=== PATIENT | female | born 1965 | race Caucasian/White ===

== ENCOUNTER 2021-01-23 10:57 | Outpatient (REF) | payer OTHER, SELFPAY | END 2021-01-23 10:58 | disposition home or self-care (01) | LOC: HO.MAMMO 10:57 | PROVIDERS: PCP Internal Medicine; Visit Provider Internal Medicine | DX: Z13.89 Encounter for screening for other disorder (principal) ==

== ENCOUNTER 2021-04-03 10:40 | Outpatient (REF) | payer OTHER, SELFPAY ==
--- NOTE | ~2021-04-03 | MM_ITS ---
EXAMINATION: MM SCREENING DIGITAL BREAST TOMOSYNTHESIS, BILATERAL CLINICAL INFORMATION: Screening. Asymptomatic. The lifetime risk of breast cancer based on the Tyrer-Cuzick Model is 5%. COMPARISON: Mammography: 04/02/2020, 03/28/2019, 02/15/2018 TECHNIQUE: Digital breast tomosynthesis is performed in both the craniocaudal and mediolateral oblique views along with computer-aided detection (CAD). Synthesized 2D images are generated from the tomosynthesis. FINDINGS: The breasts are almost entirely fatty (ACR BI-RADS breast composition Category a). There are no significant masses, abnormal calcifications, or other abnormalities. Background stromal markings are similar to prior study. The axilla and skin contours are unremarkable. No significant changes. MM/MM tomosynthesis screening BI IMPRESSION: No mammographic evidence of malignancy. ASSESSMENT: BI-RADS 1: Negative RECOMMENDATION: Routine annual mammography screening. This patient's information was entered into a reminder system with a target due date for their next mammogram.
== END 2021-04-03 10:41 | disposition home or self-care (01) ==
LOC: HO.MAMMO 10:40
PROVIDERS: Visit Provider Internal Medicine
DX: Z12.31 Encounter for screening mammogram for malignant neoplasm of breast (principal)
CPT/HCPCS: 77063; 77067

== ENCOUNTER 2022-04-04 11:21 | Outpatient (REF) | payer OTHER, SELFPAY ==
--- NOTE | ~2022-04-04 | MM_ITS ---
EXAMINATION: MM SCREENING DIGITAL BREAST TOMOSYNTHESIS, BILATERAL CLINICAL INFORMATION: Screening. Asymptomatic. The lifetime risk of breast cancer based on the Tyrer-Cuzick Model is 5%. COMPARISON: Mammography: 04/03/2021, 04/02/2020, 03/28/2019 TECHNIQUE: Digital breast tomosynthesis is performed in both the craniocaudal and mediolateral oblique views along with computer-aided detection (CAD). Synthesized 2D images are generated from the tomosynthesis. FINDINGS: The breasts are almost entirely fatty (ACR BI-RADS breast composition Category a). There are no significant masses, abnormal calcifications, or other abnormalities. Background stromal markings are similar to prior studies. No developing density or architectural abnormality. The axillary and skin contours are unremarkable. MM/MM tomosynthesis screening BI IMPRESSION: No mammographic evidence of malignancy. ASSESSMENT: BI-RADS 1: Negative RECOMMENDATION: Routine annual mammography screening. This patient's information was entered into a reminder system with a target due date for their next mammogram.
== END 2022-04-04 11:22 | disposition home or self-care (01) ==
LOC: HO.MAMMO 11:21
PROVIDERS: PCP Internal Medicine; Visit Provider Internal Medicine
DX: Z12.31 Encounter for screening mammogram for malignant neoplasm of breast (principal)
CPT/HCPCS: 77063; 77067

== ENCOUNTER 2023-02-21 19:34 | Emergency (ER) | payer OTHER, SELFPAY ==
[2023-02-21 19:41] VITALS: BP 136/85; PULSE 61; RESP 20; TEMP 36.8; O2SAT 98; BMI 28.3
--- NOTE | 2023-02-21 19:49 | ED.GENADULT ---
HPI - General Adult General Chief complaint: Wound/Laceration Stated complaint: Dog bite right hand/swollen Time Seen by Provider: 02/21/23 19:44 Source: patient, RN notes reviewed and old records reviewed Mode of arrival: ambulatory Limitations: no limitations History of Present Illness HPI narrative: 57-year-old female presents for evaluation of a dog bite to her right hand. Patient reports last night, she was bit on the right hand by her own dog. She reports that she woke this morning with some swelling and redness to the right thumb with 8/10 pain. Denies any fevers or chills The dog is up to date on all of its vaccines including rabies Related Data Previous Rx's Medication Instructions Recorded doxycycline hyclate 100 mg tablet 100 mg PO BID #14 tabs 02/21/23 metronidazole 500 mg tablet 500 mg PO TID #21 tabs 02/21/23 Allergies Allergy/AdvReac Type Severity Reaction Status Date / Time Penicillins [PENICILLINS] Allergy Unknown BODY WEAK Verified 02/21/23 19:46 Review of Systems Musculoskeletal: Musculoskeletal: Reports other (Right hand pain) Integumentary/Breasts: Skin/Breast: Reports erythema and Reports wounds Physical Exam ED Vital Signs: Vital Signs - 24 hr 02/21/23 19:41 Temperature 98.2 F Pulse Rate 61 Respiratory Rate 20 Blood Pressure 136/85 Pulse Oximetry 98 Oxygen Delivery Method Room Air BMI result Body Mass Index 28.3 Const General: healthy appearing, comfortable, no acute distress, alert and awake Nutritional Appearance: well nourished Orientation/consciousness: patient oriented x3 Neck Neck: Yes full ROM Skin Other: Patient is a very tiny puncture wound to the webspace between the right 1st and 2nd fingers. There is mild edema and erythema extending 4 cm proximally. No streaking erythema up the arm. Patient has full range of motion to the right wrist and all fingers of the right hand including the thumb General skin exam: elasticity normal Neuro General: patient oriented x3 Cranial nerves: Yes Bilaterally intact EOM present Cognition (Neuro): normal cognition Extrem Other: Moving all extremities well without any obvious deformities Medications Administered Discontinued Medications Generic Name Dose Route Start Last Admin Trade Name Freq PRN Reason Stop Dose Admin Diphtheria/Tetanus/Acell Pertussis 0.5 ml 02/21/23 19:48 02/21/23 19:51 Diphth,Pertus(Acell),Tet Adult 0.5 Ml Syringe IM 02/21/23 19:49 0.5 ml .ONCE ONE Administration Medical Decision Making Medical Decision Making MDM Narrative: Patient has a dog bite to the right hand, a small area of surrounding cellulitis. No evidence of abscess or sepsis. Will treat the patient with doxycycline and Flagyl as the patient IV allergy to penicillins. Patient was given return precautions. Tetanus was updated today Differential Diagnosis Dog bite Cellulitis Abscess Rabies exposure Discharge Plan Discharge Clinical Impression: Dog bite of right hand Patient Disposition: Home, Self-Care Instructions: Animal Bite (ED) Additional Instructions: Take doxycycline twice daily for next 7 days. Take metronidazole 3 times daily for the next 7 days Do not drink alcohol while you are taking metronidazole Return for new or worsening symptoms, especially if you develop a fever or if the redness is spreading up towards your arm Prescriptions: New doxycycline hyclate 100 mg tablet 100 mg PO BID Qty: 14 0RF metronidazole 500 mg tablet 500 mg PO TID Qty: 21 0RF
[2023-02-21] MEDS: Diphth,Pertus(ACell),Tet Adult 0.5 ML SYRINGE IM (19:51)
== END 2023-02-21 19:57 | disposition home or self-care (01) ==
LOC: HO.ED 19:56
PROVIDERS: Emergency Provider Internal Medicine
DX: S61.451A Open bite of right hand, initial encounter (principal); W54.0XXA Bitten by dog, initial encounter; Y93.9 Activity, unspecified; Y92.039 Unspecified place in apartment as the place of occurrence of the external cause; Y99.9 Unspecified external cause status
CPT/HCPCS: 90471; 90715; 99282; 99284

== ENCOUNTER 2023-04-17 12:06 | Outpatient (REF) | payer OTHER, SELFPAY ==
--- NOTE | ~2023-04-17 | MM_ITS ---
EXAMINATION: MM SCREENING DIGITAL BREAST TOMOSYNTHESIS, BILATERAL CLINICAL INFORMATION: Screening. Asymptomatic. The lifetime risk of breast cancer based on the Tyrer-Cuzick Model is 4.6%. COMPARISON: Mammography: This study is compared with prior exams dating back to 2018. TECHNIQUE: Digital breast tomosynthesis is performed in both the craniocaudal and mediolateral oblique views along with computer-aided detection (CAD). Synthesized 2D images are generated from the tomosynthesis. FINDINGS: There are scattered areas of fibroglandular density (ACR BI-RADS breast composition Category b). There are no significant masses, abnormal calcifications, or other abnormalities. MM/MM tomosynthesis screening BI IMPRESSION: No mammographic evidence of malignancy. ASSESSMENT: BI-RADS BI-RADS 1 - Negative RECOMMENDATION: Routine annual mammography screening. 1 year F/U This examination should not preclude the clinical evaluation of a suspicious palpable abnormality. This patient's information was entered into a reminder system with a target due date for their next mammogram.
== END 2023-04-17 12:07 | disposition home or self-care (01) ==
LOC: HO.MAMMO 12:06
PROVIDERS: Visit Provider Internal Medicine
DX: Z12.31 Encounter for screening mammogram for malignant neoplasm of breast (principal)
CPT/HCPCS: 77063; 77067

== ENCOUNTER → 2023-04-17 12:30 | Outpatient (BNV) | payer OTHER, SELFPAY | PROVIDERS: Visit Provider Radiology Diagnostic Radiology | DX: Z12.31 Encounter for screening mammogram for malignant neoplasm of breast (principal) | CPT/HCPCS: 77063; 77067 ==

== ENCOUNTER 2024-04-22 10:57 | Outpatient (REF) | payer OTHER, SELFPAY | END 2024-04-22 10:58 | disposition home or self-care (01) | LOC: HO.MAMMO 10:57 | PROVIDERS: PCP Internal Medicine; Visit Provider Internal Medicine | DX: Z12.31 Encounter for screening mammogram for malignant neoplasm of breast (principal) | CPT/HCPCS: 77063; 77067 ==

== ENCOUNTER → 2024-04-22 12:30 | Outpatient (BNV) | payer OTHER, SELFPAY | PROVIDERS: PCP Internal Medicine; Visit Provider Radiology Diagnostic Radiology | DX: Z12.31 Encounter for screening mammogram for malignant neoplasm of breast (principal) | CPT/HCPCS: 77063; 77067 ==

== ENCOUNTER 2025-04-28 10:46 | Outpatient (REF) | payer OTHER, SELFPAY ==
--- OUTSIDE RECORDS SUMMARY | 2025-04-28 11:17 | XMS_ITS | Data Portability ---
Author Organization [facility], [address] Address [address] [place] [address] Care Team Providers Care Manager Heavy Equipment Name Role Phone [facility] Primary Care Provi axel Assessment No assessment recorded. Plan of Treatment Reminders Order Date Submit Date Provider Last Modified By Organization Details Last Modified Time Details Appointments None recorded. Lab SARS CoV 2 (COVID-19) Ag, QL, IA, upper respiratory specimen 2022 023 [email or web address] [facility] [address] [place], [address], 16:32:52 Referral None recorded. Procedures None recorded. Surgeries None recorded. Imaging None recorded. Medication Orders Allergy Relief (fluticason e) 50 mcg/actuati on nasal spray,suspe nsion 2022 023 JENS [id number], [address] [place], [address], 16:32:51 loratadine 10 mg tablet 2022 023 [email or web address] [id number], [address] [place], [address], 12:54:29 Patient TargetsNo targets recorded. Patient Instructions Encounter Date Encounter Id Patient Instructions Last Modified By Organization Details Last Modified Time 07/04/2023 [id number] coronavirus (covid-19): care instructions [email or web address] Not available 07/04/2023 16:32:49 Sinusitis is an infection of the lining of the sinus cavities in your head. Sinusitis often follows a cold. It causes pain and pressure in your head and face. In most cases, sinusitis gets better on its own in 1 to 2 weeks. But some mild symptoms may last for several weeks. Sometimes antibiotics are needed. if you are having problems. It's also a good idea to know your test results and keep a list of the medicines you take. How can you care for yourself at home? Take an dkxf-sax-qcjeezd pain medicine. Avoid Ibuprofen, Aleve and Aspirin if . If the doctor prescribed antibiotics, take them as directed. Do not stop taking them just because you feel better. You need to take the full course of antibiotics. Be careful when taking ukwm-xrf-aepauvp cold or influenza (flu) medicines and Tylenol at the same time. Many of these medicines have acetaminophen, which is Tylenol. Read the labels to make sure that you are not taking more than the recommended dose. Too much acetaminophen (Tylenol) can be harmful. Breathe warm, moist air from a steamy shower, a hot bath, or a sink filled with hot water. Avoid cold, dry air. Using a humidifier in your home may help. Follow the directions for cleaning the machine. Use saline (saltwater) nasal washes. This can help keep your nasal passages open and wash out mucus and bacteria. You can buy saline nose drops at a grocery store or drugstore. Or you can make your own at home by adding 1 teaspoon (5 millilitres) of salt and 1 teaspoon (5 millilitres) of baking soda to 2 cups (500 mL) of distilled water. If you make your own, fill a bulb syringe with the solution, insert the tip into your nostril, and squeeze gently. Blow your nose. Put a hot, wet towel or a warm gel pack on your face 3 or 4 times a day for 5 to 10 minutes each time. Try a decongestant nasal spray like oxymetazoline (Drixoral). Do not use it for more than 3 days in a row. Using it for more than 3 days can make your congestion worse. [email or web address] Not available 07/04/2023 16:32:31 Reason for Referral None Reported. Results Created Date Observation Date Name Description Value Unit Range Abnormal Flag Note LastModifiedBy Organization Detail LastModifiedTime 07/04/20 23 07/04/2023 SARS CoV 2 (COVI D-19) Ag, QL, IA, upper respi rator y speci men Unknown Analyte negati ve Not Available [id number] [place], [address], 07/04/2023 15:49:17 Result Notes None recorded. 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 Procedures Surgical History Date Name Laterality Status Provider Name and Address Organization Details Recorded Time hysterectomy completed STACY RIANA PA - [facility] 07/04/2023 15:49:29 Imaging Results None recorded. Procedure Notes None recorded. Medical Equipment None Reported. Allergies Allergen ID Allergen Name Allergen Category Reaction Reaction Severity Criticality Documentation Date Start Date Code Code System Note Provider Name and Address Organization Details Recorded Time 076679 Product containin g penicilli n (product) medicatio n Not available Not available Not available 07/04/2023 15559 8001 SNOMED STACY MORENO-RIVE RA null, PA - [facility] 3 15:46:18 858481 Sudafed medicatio n Not available Not available Not available 07/04/2023 57565 2 RxNorm [place] MORENO-RIVE RA null, PA - [facility] 3 15:46:39 Medications Name Sig Start Date Stop Date Status Note LastModified by Organization Details LastModified Time clonidine HCl 0.1 mg tablet TAKE 1/2 TABLET BY MOUTH TWICE A DAY NEEDED FOR ANXIETY active Not Available Not Available No t Available ketotifen 0.025 % (0.035 %) eye drops INSTILL 1 DROP INTO BOTH EYES TWICE A DAY active Not Available Not Available No t Available metronidazo le 500 mg tablet TAKE 1 TAB BY MOUTH 3 TIMES A DAY 07/04 completed Not Available Not Available Not Available oxycodone-a cetaminophe n 5 mg-325 mg tablet TAKE 1 TABLET BY MOUTH TWICE A DAY NEEDED FOR PAIN FOR UP TO 28 DAYS active Not Available Not Available No t Available methocarbam ol 750 mg tablet TAKE 1 TABLET BY MOUTH THREE TIMES A DAY active Not Available Not Available No t Available fluticasone propionate 50 mcg/actuati on nasal spray,suspe nsion INSTILL 1 SPRAY INTO THE NOSTRIL ONCE DAILY DIRECTED active Not Available Not Available No t Available doxycycline hyclate 100 mg tablet TAKE 1 TAB BY MOUTH TWICE A DAY 07/04 completed Not Available Not Available Not Available loratadine 10 mg tablet TAKE 1 TABLET BY MOUTH EVERY DAY active Not Available Not Available No t Available levothyroxi ne 112 mcg tablet TAKE 1 TABLET BY MOUTH EVERY DAY active Not Available Not Available No t Available olmesartan 20 mg tablet TAKE 1/2 TABLETS BY MOUTH DAILY. TO REPLACE LOSARTAN active Not Available Not Available No t Available escitalopra m 20 mg tablet TAKE 1 TABLET BY MOUTH EVERY DAY IN THE EVENING active Not Available Not Available No t Available Vitals Date Recorded Body height Body mass index (BMI) Body weight Respiratory rate Provider Name and Address Organization Details Last Updated DateTime 07/04/2023 162.56 cm 29.2 kg/m2 62492.7 g 18 /min STACY Mars PA - [facility] 07/04/2023 15:46:05 Social History Question Answer Notes LastModified by [employer] Details LastModified Time Tobacco Smoking Status Never Smoker STACY bah PA - [facility] 07/04/2023 15:48:41 Have You Had A Flu Shot This Season? No Information not available 07/04/2023 If No, Would You Like A Flu Shot Today? No Information not available 07/04/2023 Have You Recently Traveled Abroad? No Information not available 07/04/2023 Sex: Unknown Functional Status Question Answer Note LastModified by Organizat ion Details LastModified Time Do you use any illicit or recreational drugs? No Information not available 07/04/2023 Do you or have you ever used any other forms of tobacco or nicotine? No Information not available 07/04/2023 What is your level of alcohol consumption? None Information not available 07/04/2023 Mental Status None recorded. Family History Relationship Description Onset Age of this Age Resolved Age Notes LastModified by Organization Details LastModified Time Unspecified Relation Malignant neoplastic disease Not available 15:48:26 Medical History No medical history recorded. Gynecological History Statement/Question Response LMP N/A Obstetrics History GPAL:G 0 P 0 0 0 0 Immunizations Vaccine Type Date Status Note Provider Nam e and Address Organization Details Recorded Time COVID-19, mRNA, LNP-S, PF, 30 mcg/0.3 mL dose 1 completed STACY MORENO-VARGHESE null, PA - [facility] 07/04/2023 15:46:09 COVID-19, mRNA, LNP-S, PF, 30 mcg/0.3 mL dose 1 completed STACY MORENO-VARGHESE null, PA - [facility] 07/04/2023 15:46:09 COVID-19, mRNA, LNP-S, bivalent, PF, 30 mcg/0.3 mL dose 2 completed STACY MORENO-VARGHESE null, PA - [facility] 07/04/2023 15:46:09 Tdap 8 completed STACY MORENO-VARGHESE null, PA - [facility] 07/04/2023 15:46:09 Tdap 3 completed STACY MORENO-VARGHESE null, PA - [facility] 07/04/2023 15:46:09 Influenza, split virus, trivalent, preservative 1 completed STACY MORENO-VARGHESE null, PA - [facility] 07/04/2023 15:46:09 Td (adult), 2 Lf tetanus toxoid, preservative free, adsorbed 2 completed STACY MORENO-VARGHESE null, PA - [facility] 07/04/2023 15:46:09 Hep B, adult 2 completed STACY MORENO-VARGHESE null, PA - [facility] 07/04/2023 15:46:09 Hep B, adult 1 completed STACY MORENO-VARGHESE null, PA - [facility] 07/04/2023 15:46:09 Hep B, adult 1 completed STACY MORENO-VARGHESE null, PA - [facility] 07/04/2023 15:46:09 Hep B, adult 0 completed STACY MORENO-VARGHESE null, PA - [facility] 07/04/2023 15:46:09 Hep B, adult 9 completed STACY MORENO-VARGHESE null, PA - [facility] 07/04/2023 15:46:10 Hep B, adult 9 completed STACY MORENO-VARGHESE null, PA - [facility] 07/04/2023 15:46:10 Past Encounters Encounter ID Performer Location Encounter Start Date Encounter Closed Date Diagnosis/Indication Diagnosis SNOMED-CT Code Diagnosis ICD10 Code Diagnosis Note [id number] [address] [place] [address] 03/11/2018 13:25:36 03/11/2018 14:50:04 [id number] [place] [address] [address] [place] [address] 07/04/2023 15:30:31 07/04/2023 16:36:46 Exposure to SARS-CoV-2 209843681 Z20.822 Acute sinusitis 27016997 J01.90 Health Concerns Section Related Observation LastModified by Organization Detai ls LastModified Time None Recorded Concern Status LastModified by Organization Details LastModified Time None Recorded Advance Directives Directive None Recorded Payers Insurance Date Sequence Insurance Name Policy Number Policy Slater Covered Member ID Slater Member ID Guarantor Name 07/04/2023 1 [facility] (MEDICAID HMO) KENNEY Vazquez [id number] Celine Vazquez Notes Date Note Type Note Provider Name and Address Organization Details Recorded Time 07/04/2023 text/html Sinus Complaints UCReported bypatient.Location: sinus pain;facial pain;sinus pressure Associated Symptoms:no fever; no nausea or vomiting; no sore throat; no ear fullness; no nasal itching; no eye itching; no dizziness;difficult y breathing;Post nasal drip;nasal passage blockage;cough Onset/Timing:worse in am; worse in pm Quality:minimal discomfort;worsenin g; clear Duration:frequent Severity:moderate Context:no recent upper respiratory infection; no recent sick contacts; not worse with seasonal allergen exposure;worse with environmental exposure Risk Factors:no current smoking or tobacco use; no history of nasal trauma Alleviating factors:oral steroids Aggravating factors:worse during an upper respiratory infection (a cold); worse with excess fatigue Prior Treatmentoral decongestant Gera Steen NP [address] [place], [address], PA - [facility] 07/04/2023 16:35:27 OBGyn Episode No OBEpisode recorded.
--- OUTSIDE RECORDS SUMMARY | 2025-04-28 11:17 | XMS_ITS | Encounter Summary ---
Author Organization [facility] Address [address] [place] [address] Care Team Providers Care Mixer Runner Name Role Phone Dung Herrera MD Primary Care Provider [phone] Reason for Visit * Reason Onset Date Comments provide call back 04/28/2025 Encounter Details Date Type Department Care Team (Late st Contact Info) Description 04/28/2025 Telephone Vascular Surgery - [place] [address] [place] [phone] Kirby Rachel MD [address] [place] [address] provide call back Social History Tobacco Use Types Packs/Day Years Used Date Smoking Tobacco: Former Cigarettes Q uit: 10/12/2012 Smokeless Tobacco: Never Alcohol Use Standard Drinks/Week Comments No 0 (1 standard drink = 0.6 oz pur e alcohol) Comments No Sex and Gender Information Value Date Recorded Sex Assigned at Not on file Legal Sex Female 5:05 AM EST Gender Identity Not on file Sexual Orientation Not on file documented as of this encounter Progress Notes * Pramod Renee MA - 04/28/2025 10:51 AM EDT Forwarded to [facility] to see how long out this would be booked, procedure was ordered in December by Nicole * Argenis Flores - 04/28/2025 10:34 AM EDT Patient called she wants to follow up with procedure. Please call patient back. documented in this encounter Plan of Treatment Upcoming Encounters Date Type Department Care Team (Late st Contact Info) Description 05/12/2025 10:35 AM EDT Office Visit Pulmonolgy - [place] [address] [place] [phone] Luci Alcantara NP [address] [place] [address] 06/15/2025 10:00 AM EDT Appointment Radiology Department - [address] [phone] 06/21/2025 9:45 AM EDT Office Visit Endocrinology - [address] [phone] Cheryl Mccall PA [address] [place] [address] 08/03/2025 11:00 AM EDT Office Visit Internal Medicine - [facility] [address] [place] [address] Dung Herrera MD [address] [place] [address] documented as of this encounter Visit Diagnoses Not on filedocumented in this encounter Care Teams Mixer Runner Relationship Specialty Start Date End Date Dung Herrera MD [address] [place] [address] PCP - General Internal Medicine 02/18/22 documented as of this encounter
== END 2025-04-28 10:47 | disposition home or self-care (01) ==
LOC: HO.MAMMO 10:46
PROVIDERS: PCP Internal Medicine; Visit Provider Internal Medicine
DX: Z12.31 Encounter for screening mammogram for malignant neoplasm of breast (principal)
CPT/HCPCS: 77063; 77067

== ENCOUNTER → 2025-04-28 11:00 | Outpatient (BNV) | payer OTHER, SELFPAY | PROVIDERS: PCP Internal Medicine; Visit Provider Internal Medicine | DX: Z12.31 Encounter for screening mammogram for malignant neoplasm of breast (principal) | CPT/HCPCS: 77063; 77067 ==

== ENCOUNTER 2025-06-26 21:51 | Emergency (ER) | payer OTHER, SELFPAY ==
--- OUTSIDE RECORDS SUMMARY | 2025-06-22 15:09 | XMS_ITS | Encounter Summary ---
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 Procedures US Head Neck Soft Tissue Cheryl Mccall PA [address] [place] [address] Phone: tel: fax: [facility] Referral ID Status Reason Start Date Expiration Date V isits Requested Visits Authorized [id number] Pending Review 12/16/2024 12/16/2025 1 1 Reason for Visit * Imaging (Routine) - Pending Review Specialty Diagnoses / Procedures Referred By Marley nowak Referred To Contact Radiology Diagnoses 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 Procedures US Head Neck Soft Tissue Cheryl Mccall PA [address] [place] [address] Phone: tel: fax: [facility] Referral ID Status Reason Start Date Expiration Date V isits Requested Visits Authorized [id number] Pending Review 12/16/2024 12/16/2025 1 1 Encounter Details Date Type Department Care Team (Latest Contact Info) Description 06/22/2025 3:09 PM EDT - 06/22/2025 11:59 PM EDT Hospital Encounter Radiology Department - [address] [phone] 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 cloNIDine (CATAPRES) 0.1 mg tablet Take 0.5 tablets (0.05 mg total) by mouth. Take 0.05 mg by mouth daily as needed for Anxiety 06/25/2022 escitalopram (LEXAPRO) 10 mg tablet Take 1.5 tablets (15 mg total) by mouth 1 (one) time each day. fluticasone propionate (FLONASE) 50 mcg/actuation nasal spray Administer 2 sprays into each nostril 1 (one) time each day. 48 g 1 03/13/2025 ketotifen fumarate (ZADITOR) 0.035 % ophthalmic solution Administer 1 drop into affected eye(s) 1 (one) time each day. 5 mL 1 05/26/2025 L. rhamnosus GG/inulin ([facility] ORAL) Take by mouth. levothyroxine (SYNTHROID, LEVOTHROID) 100 mcg tablet TAKE 1 TABLET BY MOUTH EVERY DAY 90 tablet 3 06/19/2025 loratadine (CLARITIN) 10 mg tablet Take 1 tablet (10 mg total) by mouth 1 (one) time each day. 03/18/2024 MAGNESIUM ORAL Take 100 mg by mouth 1 (one) time each day. meclizine (ANTIVERT) 25 mg tablet Take 1 tablet (25 mg total) by mouth. Take 1 Tab by mouth 3 times daily as needed (dizziness) 01/04/2018 medical supply, miscellaneous (MISCELLANEOUS MEDICAL SUPPLY MISC) CPAP Historical (HISTORICAL CPAP) Inhale 6-16 cm into the lungs at bedtime. 08/02/2021 methocarbamoL (ROBAXIN) 750 mg tablet TAKE 1 TABLET BY MOUTH THREE TIMES A DAY 90 tablet 2 06/19/2025 olmesartan (BENICAR) 20 mg tablet TAKE 1/2 TABLET BY MOUTH DAILY 45 tablet 1 12/27/2024 polyvinyl alcohol (ARTIFICIAL TEARS) 1.4 % ophthalmic solution 1.4 Drops. 2 drop (R) eye 3-4 x daily 08/17/2014 UNABLE TO FIND Elastic Bandages & Supports (B & B SACROILIAC BELT) Misc 1 Each by Does not apply route daily. 04/07/2017 UNABLE TO FIND Misc. Devices (CONTOUR BACK CUSHION) Misc 1 Each by Does not apply route daily. 06/11/2015 vitamin E acid succinate (vitamin E succinate) 268 mg (400 unit) tablet Take 1 tablet by mouth 1 (one) time each day. oxyCODONE-acetamino phen (PERCOCET) 5-325 mg per tabletIndications:A rthralgia, unspecified joint Take 1 tablet by mouth 2 (two) times a day for 28 days. Max Daily Amount: 2 tablets 56 tablet 05/26/2025 documented as of this encounter Discharge Disposition Disposition Code Departure Means Destination Home or Self Care documented in this encounter Plan of Treatment Upcoming Encounters Date Type Department Care Team (Late st Contact Info) Description 08/03/2025 11:00 AM EDT Office Visit Internal Medicine - [facility] [address] [place] [address] Dung Herrera MD [address] [place] [address] 08/25/2025 11:25 AM EST Office Visit Pulmonolgy [facility] [address] [place] [phone] Luci Alcantara NP [address] [place] [address] 08/31/2025 10:00 AM EST Procedure visit Vascular Surgery - [place] [address] [place] [phone] Kirby Rachel MD [address] [place] [address] 09/04/2025 10:00 AM EST Ancillary Procedure [facility] [address] [facility] [address] [place] [address] 09/18/2025 2:00 PM EST Office Visit Vascular Surgery - [place] [address] [facility] [address] [place] [phone] Nicole Larios PA [address] [place] [phone] 06/21/2026 11:00 AM EDT Office Visit Endocrinology [address] [address] Cheryl Mccall PA [address] [place] [address] documented as of this encounter Procedures Procedure Name Priority Date/Time Associated Diagnosis Comments US HEAD NECK SOFT TISSUE Routine 06/22/2025 3:24 PM EDT 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 Small thyroid gland. 2. No focal nodules -------- FINAL REPORT -------- Dictated By: Eh Joe Dictated Date: 06/22/2025 17:47 ET Assigned Physician: Eh Joe Reviewed and Electronically Signed By: Eh Joe Signed Date: 06/22/2025 17:49 ET Workstation ID: [id number] Transcribed By: Self Edit Transcribed Date: 06/22/2025 17:47 ET Narrative 06/22/2025 5:49 PM EDT Exam: Thyroid ultrasound. HISTORY: hypothyroidism COMPARISON: None Technique: Grayscale and Doppler images of the thyroid gland were obtained. FINDINGS: The thyroid gland is small in size. The right lobe measures 2.2 x 0.5 x 0.9 cm. The left lobe measures 2.6 x 0.7 x 0.7 cm. The thyroid isthmus is small in size and measures 0.2 cm. The thyroid parenchyma is heterogenous. No focal nodules Procedure Note Eh Joe MD - 06/22/2025 Exam: Thyroid ultrasound. HISTORY: hypothyroidism COMPARISON: None Technique: Grayscale and Doppler images of the thyroid gland wereobtained. FINDINGS: The thyroid gland is small in size. The right lobe measures 2.2 x 0.5 x0.9 cm. The left lobe measures 2.6 x 0.7 x 0.7 cm. The thyroid isthmus issmall in size and measures 0.2 cm. The thyroid parenchyma is heterogenous.No focal nodules IMPRESSION: 1. Small thyroid gland. 2. 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
--- NOTE | ~2025-06-26 | XR_ITS ---
CLINICAL HISTORY: Dog Bite; Swelling Infected 3 view right hand Comparison: None provided Findings: No fractures or dislocations. [id number] interphalangeal degenerative changes. No erosions. No radiopaque foreign body. IMPRESSION: No soft tissue gas, foreign body, or fracture. This document has been electronically signed by: Asher Puentes MD on 06/27/2025 04:49:43
[2025-06-26 22:27] VITALS: BP 145/76; PULSE 75; RESP 20; TEMP 36.5; O2SAT 99; BMI 31.9
[2025-06-26 22:40] LABS: MANUAL DIFF FLAG NO
[2025-06-26 22:41] LABS: Hematocrit 36.6 % (37.0-47.0); Hemoglobin 12.2 g/dl (12.0-16.0); Imm Gran Abs Auto 0.01 X10*3/uL (0.00-0.03); Imm Gran Pct Auto 0.2 % (0.0-0.4); Lymphocytes Absolute Auto 1.8 X10*3/uL (1.2-4.9); Mean Corpuscular HGB Conc 33.3 g/dl (31.0-35.0); Mean Corpuscular Hemoglobin 29.5 pg (27.0-33.0); Mean Corpuscular Volume 88.4 fL (80.0-98.0); NRBC Abs Auto 0.000 X10*3/uL (0.0-0.012); NRBC Pct Auto 0.0 /100WBC (0.0-0.2); Platelet Count 198 X10*3/uL (160-400); Red Blood Count 4.14 X10*6/uL (4.20-5.50); White Blood Count 6.3 X10*3/uL (4.8-10.8)
[2025-06-26 22:54] LABS: Alanine Aminotransferase 20 U/L (0-31); Albumin Level 4.3 g/dL (3.5-5.0); Alkaline Phosphatase 94 U/L (39-117); Anion Gap 9 (12-20); Aspartate Amino Transferase 23 U/L (5-31); Blood Urea Nitrogen 10 mg/dL (9-16); Calcium 9.4 mg/dL (8.4-10.2); Carbon Dioxide 29 mmol/L (22-29); Chloride 106 mmol/L (96-108); Creatinine Clr Calc Pharmacy 92.1; Estimated Glomerular Filt Rate > 60; Potassium 4.3 mmol/L (3.3-5.1); Sodium 140 mmol/L (135-145); Total Protein 7.1 g/dL (6.5-8.0)
--- OUTSIDE RECORDS SUMMARY | 2025-06-27 00:36 | XMS_ITS ---
Author Name [facility] Organization Unknown Care Team Organization Name Specialty Phone Email Start Date End Da te [facility] Dung Herrera Primary Care 08/19/20222023
--- OUTSIDE RECORDS SUMMARY | 2025-06-27 00:36 | XMS_ITS | Encounter Summary ---
Author Organization [facility] Address [address] [place] [address] Care Team Providers Care Interior Design Director Name Role Phone Dung Herrera MD Primary Care Provider [phone] Reason for Visit * Reason Onset Date Comments Last Office Note Request 06/19/2025 Encounter Details Date Type Department Care Team (Late st Contact Info) Description 06/19/2025 Telephone [facility] [address] [place] [address] Luci Alcantara, NAYELY [address] [place] [phone] Social History Tobacco Use Types Packs/Day Years [...] as of this encounter Progress Notes * Kellie German - 06/19/2025 1:14 PM EDT Dionte called requesting last office notes for patient. Notes were faxed to documented in this encounter Plan of Treatment Upcoming Encounters Date Type Department Care Team (Late st Contact Info) Description 08/03/2025 11:00 AM EDT Office Visit Internal Medicine - [facility] [address] [place] [address] Dung Herrera MD [address] [place] [address] 08/25/2025 11:25 AM EST Office Visit Pulmonolgy - [place] [address] [place] [phone] Luci Alcantara NP [address] [place] [phone] 08/31/2025 10:00 AM EST Procedure visit Vascular Surgery - [place] [address] [facility] [address] [place] [address] Kirby Rachel MD [address] [place] [phone] 09/04/2025 10:00 AM EST Ancillary Procedure [facility] - [facility] [address] [facility] [address] [place] [address] 09/18/2025 2:00 PM EST Office Visit Vascular Surgery - [place] [address] [facility] [address] [place] [address] Nicole Larios PA [address] [place] [phone] 06/21/2026 11:00 AM EDT Office Visit Endocrinology [address] [phone] Cheryl Mccall PA [address] [place] [address] documented as of this encounter Visit Diagnoses Not on filedocumented in this encounter Care Teams Interior Design Director Relationship Specialty Start Date End Date Dung Herrera MD [address] [place] [address] PCP - General Internal Medicine 02/18/22 documented as of this encounter
--- OUTSIDE RECORDS SUMMARY | 2025-06-27 00:36 | XMS_ITS | Clinical Summary ---
Author Organization [address] [place] [address] [place] [phone] Phone Care Team Providers Care Automated Logistics Specialist Name Role Phone Dung Herrera MD Primary Care Provider [phone] Allergies Active Allergy Reactions Criticality Noted Date Comments Lisinopril 08/02/2021 Penicillins 04/10/2014 Dizziness and weakness Pseudoephedrine Hcl Other 05/02/2016 Chest pressure Medications loratadine (CLARITIN) 10 mg tablet Take 1 tablet (10 mg total) by mouth 1 (one) time each day. 03/18/20 24 Active cloNIDine (CATAPRES) 0.1 mg tablet Take 0.5 tablets (0.05 mg total) by mouth. Take 0.05 mg by mouth daily as needed for Anxiety 06/25/20 22 Active escitalopram (LEXAPRO) 10 mg tablet Take 1.5 tablets (15 mg total) by mouth 1 (one) time each day. Active meclizine (ANTIVERT) 25 mg tablet Take 1 tablet (25 mg total) by mouth. Take 1 Tab by mouth 3 times daily as needed (dizziness) 01/05/20 18 Active cholecalciferol (VITAMIN D-3) 25 mcg (1,000 unit) capsule Take by mouth 1 (one) time each day. Active L. rhamnosus GG/inulin ([facility] D[facility] ORAL) Take by mouth. Active medical supply, miscellaneous (MISCELLANEOUS MEDICAL SUPPLY MISC) CPAP Historical (HISTORICAL CPAP) Inhale 6-16 cm into the lungs at bedtime. 08/02/20 21 Active UNABLE TO FIND Elastic Bandages & Supports (B & B SACROILIAC BELT) Misc 1 Each by Does not apply route daily. 04/07/20 17 Active UNABLE TO FIND Misc. Devices (CONTOUR BACK CUSHION) Misc 1 Each by Does not apply route daily. 06/11/20 15 Active polyvinyl alcohol (ARTIFICIAL TEARS) 1.4 % ophthalmic solution 1.4 Drops. 2 drop (R) eye 3-4 x daily 08/17/20 14 Active vitamin E acid succinate (vitamin E succinate) 268 mg (400 unit) tablet Take 1 tablet by mouth 1 (one) time each day. Active olmesartan (BENICAR) 20 mg tablet TAKE 1/2 TABLET BY MOUTH DAILY 45 tablet 1 12/28/19 25 Active fluticasone propionate (FLONASE) 50 mcg/actuation nasal spray Administer 2 sprays into each nostril 1 (one) time each day. 48 g 1 03/13/20 25 Active MAGNESIUM ORAL Take 100 mg by mouth 1 (one) time each day. Active diphenhydrAMINE (BenadryL) 25 mg capsuleIndicatio ns:Rash Take 1 capsule (25 mg total) by mouth at bedtime as needed for itching. 30 capsule 05/12/20 25 Active ketotifen fumarate (ZADITOR) 0.035 % ophthalmic solution Administer 1 drop into affected eye(s) 1 (one) time each day. 5 mL 1 05/26/20 25 Active levothyroxine (SYNTHROID, LEVOTHROID) 100 mcg tablet TAKE 1 TABLET BY MOUTH EVERY DAY 90 tablet 3 06/19/20 25 Active methocarbamoL (ROBAXIN) 750 mg tablet TAKE 1 TABLET BY MOUTH THREE TIMES A DAY 90 tablet 2 06/19/20 25 Active oxyCODONE-acetam inophen (PERCOCET) 5-325 mg per tabletIndication s:Arthralgia, unspecified joint Take 1 tablet by mouth 2 (two) times a day for 28 days. Max Daily Amount: 2 tablets 56 tablet 06/26/20 25 2024 Active levothyroxine (SYNTHROID, LEVOTHROID) 100 mcg tablet Take 1 tablet (100 mcg total) by mouth. 1 tab daily, skip Thursday12/17/19 25 2024 Discontinued methocarbamoL (ROBAXIN) 750 mg tablet TAKE 1 TABLET BY MOUTH THREE TIMES A DAY 90 tablet 05/22/20 25 2024 Discontinued oxyCODONE-acetam inophen (PERCOCET) 5-325 mg per tabletIndication s:Arthralgia, unspecified joint Take 1 tablet by mouth 2 (two) times a day for 28 days. Max Daily Amount: 2 tablets 56 tablet 05/26/20 25 2024 Discontinued(R eorder) Active Problems Problem Noted Date Diagnosed Date Gastroesophageal reflux disease 01/15/2022 Hypertension 06/04/2020 Obstructive sleep apnea 04/10/2020 Overview (08/05/2024): [facility] Home Sleep Apnea Test: Date 04/04/2020; BMI 27; RDI 28, AHI 26; average oxygen saturation 94% (lowest 85% without saturations <88% for 5% or more of study) - Obstructive Sleep Apnea - moderate; without sleep related hypoventilation by 2019 home sleep apnea test. Chronic back pain 11/08/2014 Colon polyp 04/30/2014 Overview (08/05/2024): 07/24 - benign submucosal lymphatic nodule Depression with anxiety 04/30/2014 Overview (08/05/2024): Had been on Wellbutrin in the past; [facility] prescribing Hypothyroid 04/10/2014 Joint pain 04/10/2014 Overview (08/05/2024): Dr. Denney Migraine 04/10/2014 Overview (08/05/2024): Dr. 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 [phone] Dung Herrera MD 05/22/20[facility] [address] [phone] Crissy Love MA 05/12/2025 10:35 AM EDT Office Visit [address] [phone] Luci Alcantara NP Obstructive sleep apnea (Primary Dx); Hypertension, unspecified type; Obesity (BMI 30-39.9); Gastroesophageal reflux disease, unspecified whether esophagitis present; Depression with anxiety 05/12/2025 8:30 AM EDT [facility] [phone] Miriam Vizcarra NP Rash (Primary Dx); Dog bite, initial encounter 05/01/2025 Telephone Vascular Surgery [facility] [address] [phone] Galina Fuentes MA 04/28/2025 Telephone Vascular Surgery [facility] [address] [phone] Kirby Rachel MD 04/27/2025 11:30 AM EDT [facility] [address] [place] [address] Reymundo Kulkarni PA Health maintenance examination (Primary Dx); Class 1 obesity; Acute otitis externa of left ear, unspecified type 04/27/2025 [facility] [address] [place] [address], [place] [phone] Meliza Harrison MA 04/21/2025 Telephone Internal Medicine - [address] [phone] Dung Herrera MD 04/18/2025 [facility] [phone] Dung Herrera MD from Last 3 Months Immunizations Name Administration Dates Next Due Hepatitis B (Kiftrue-R-Rqbvn , Recombivax HB-Adult) 19yo and older 03/22/2010,09/26/2009,08/24/2009,2001,03/19/2001,02/15/2001 PPD Test 08/22/2009,08/15/2002,02/15/2001 [employer] SARS-CoV-2 COVID-19, mRNA, LNP-S, preservative free 03/06/2021,02/13/2021 Td Tetanus diptheria (Tdvax) 7yo and older 10/21/2001 Tdap Tetanus diptheria acell ular pertussis (Boostrix; Adacel) 7yo and older 01/06/2018 Surgical History Surgery Date Site/Laterality Comments SECTION PROCEDURE: HISTORICAL Medical History Medical History Date Comments Hypothyroid 04/10/2014 DX:Hypothyroid Migraine 04/10/2014 DX:Migraine Joint pain 04/10/2014 DX:Joint pain Depression with anxiety 04/30/2014 DX:Depre ssion with anxiety HTN (hypertension) DX:HTN (hyper tension) Sleep apnea DX:Sleep apnea Family History Medical History Relation Name Comments Eczema Daughter Other: food allerg-cranberry and pineapple Daughter Other: allergic rhinitis Sister 1 Other: allergic rhinitis Sister 2 Relation Name Status Comments Daughter Father (Age 72) Seizures, alcoholism Mother (Age 81) Esophageal cancer Sister 1 Sister 2 Social History Tobacco Use Types Packs/Day Years Used Date Smoking Tobacco: Former Cigarettes Q uit: 10/12/2012 Smokeless Tobacco: Never Tobacco Cessation:Counseling Given: Not Answered Alcohol Use Standard Drinks/Week Comments No 0 (1 standard drink = 0.6 oz pur e alcohol) Comments No Sex and Gender Information Value Date Recorded Sex Assigned at Not on file Legal Sex Female 5:05 AM EST Gender Identity Not on file Sexual Orientation Not on file Obstetrics History Last Filed Vital Signs Vital Sign Reading Time Taken Comments Blood Pressure 124/68 06/21/2025 10:10 AM EDT Pulse 58 06/21/2025 10:10 AM EDT Temperature 36.6 C (97.8 F) 05/12/2025 10:27 AM EDT Respiratory Rate 16 05/12/2025 10:27 AM EDT Oxygen Saturation 98% 05/12/2025 10:27 AM EDT Inhaled Oxygen Concentration - - Weight 87.1 kg (192 lb) 06/21/2025 10:10 AM EDT Height 165.1 cm (5' 5 ) 06/21/2025 10:10 AM EDT Body Mass Index 31.95 06/21/2025 10:10 AM EDT Plan of Treatment Upcoming Encounters Date Type Department Care Team (Late st Contact Info) Description 08/03/2025 11:00 AM EDT Office Visit Internal Medicine - [facility] [address] [place] [phone] Dung Herrera MD [address] [place] [address] 08/25/2025 11:25 AM EST Office Visit Pulmonolgy - [place] [address] [place] [phone] Luci Alcantara NP [address] [place] [phone] 08/31/2025 10:00 AM EST Procedure visit Vascular Surgery - [place] [address] [place] [phone] Kirby Rachel MD [address] [place] [phone] 09/04/2025 10:00 AM EST Ancillary Procedure [facility] [address] [facility] Jon [address] [place] [phone] 09/18/2025 2:00 PM EST Office Visit Vascular Surgery - [place] [address] [place] [phone] Nicole Larios PA [address] [place] [phone] 06/21/2026 11:00 AM EDT Office Visit Endocrinology [facility] [address] [place] [phone] Cheryl Mccall PA [address] [place] [address] Health Maintenance Due Date Last Done Comments Pneumococcal Vaccine: 50+ Years (1 of 1 - PCV) 2013 Zoster Vaccines (1 of 2) 2013 Cervical Cancer Screening: Pap Smear 07/12/2022 07/12/2019 HIV Screening 09/20/2022 Social Influencers of Health Screening 09/20/2022 Depression Screening 10/12/2024 07/01/2024 COVID-19 Vaccine ( - season) 2025 09/30/2022, 03/06/2021, 02/13/2021 Influenza Vaccine (#1) 2025 06/18/2011 Hypertension/CHF/CAD Annual BMP Blood Test 03/07/2026 03/07/2025, 11/16/2024, 07/01/2024, Additional history exists Breast Cancer Screening 05/09/2027 05/09/2025 Colorectal Cancer Screening: Colonoscopy 07/01/2029 07/01/2024 Cholesterol Screening (Lipid Panel) 03/07/2030 03/07/2025, 04/22/2023 DTaP,Tdap,and Td Vaccines (4 - Td or Tdap) 02/21/2033 02/21/2023, 01/06/2018, 10/21/2001 RSV Immunization Adult Patients (1 - 1-dose 75+ series) 2038 Hepatitis B Vaccines Completed 03/22/2010, 09/26/2009, 08/24/2009, Additional history exists Hepatitis C Screening Completed 12/29/2014 HIB Vaccines Aged Out No longer eligi ble based on patient's age to complete this topic HPV Vaccines Aged Out No longer eligi ble based on patient's age to complete this topic Hepatitis A Vaccines Aged Out No long er eligible based on patient's age to complete this topic IPV Vaccines Aged Out No longer eligi ble based on patient's age to complete this topic MMR Vaccines Aged Out No longer eligi ble based on patient's age to complete this topic Meningococcal ACWY Vaccine Aged Out N o longer eligible based on patient's age to complete this topic Meningococcal B Vaccine Aged Out No l onger eligible based on patient's age to complete this topic RSV Immunization Patients Under 20 months Aged Out No longer eligible based on patient's age to complete this topic Varicella Vaccines Aged Out No longer eligible based on patient's age to complete this topic Procedures Procedure Name Priority Date/Time Associated Diagnosis Comments US HEAD NECK SOFT TISSUE Routine 06/22/2025 3:24 PM EDT 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 HOME SLEEP TEST Routine 05/11/2025 2:01 PM EDT EXTERNAL MAMMOGRAM REPORT 05/09/2025 COMPREHENSIVE METABOLIC PANEL Routine 03/07/2025 4:08 PM EDT Hypertension, unspecified type LIPID PANEL WITH REFLEX TO DIRECT LDL Routine 03/07/2025 4:08 PM EDT Mixed hyperlipidemia HM DEPRESSION SCREENING Routine 07/01/2024 HM COLONOSCOPY Routine 07/01/2024 HM PAP SMEAR Routine 07/12/2019 HEPATITIS C SCREENING Routine 12/29/2014 from Last 3 Months or Most Recently Relevant to Health Maintenance Results * US Head Neck Soft Tissue [...] Signed Date: 06/22/2025 17:49 ET Workstation ID: [id number] Transcribed By: Self Edit Transcribed Date: 06/22/2025 [...] Signed Date: 06/22/2025 17:49 ET Workstation ID: [id number] Transcribed By: Self Edit Transcribed Date: 06/22/2025 17:47 ET Cheryl Mccall PA IMG US PROCEDURES Final Res ult * Home sleep test (05/11/2025 2:01 PM EDT) Historical Provider SLEEP CENTER ORDERABLES F inal Result * External Mammogram Report (05/09/2025) Anatomical Region Laterality Modality Mammography Provider [facility] IMG BI PROCEDURES Final Result * (ABNORMAL) Lipid panel with reflex to direct LDL (03/07/2025 4:08 PM EDT) Cholesterol 184 0 - 200 mg/dL LAB CHEMISTRY METHOD 03/07/2025 7:34 PM EDT [facility] Triglycerides 179(H) 0 - 150 mg/dL LAB CHEMISTRY METHOD 03/07/2025 7:34 PM EDT [facility] HDL 53 >=40 mg/dL LAB CHEMISTRY METHOD 03/07/2025 7:34 PM EDT [facility] LDL Calculated 95 0 - 100 mg/dL LAB CHEMISTRY METHOD 03/07/2025 7:34 PM EDT [facility] VLDL Cholesterol Dion 35.8 mg/dL LAB CHEMISTRY METHOD 03/07/2025 7:34 PM EDT [facility] Non HDL Chol. (LDL+VLDL) 131 <145 mg/dL LAB CHEMISTRY METHOD 03/07/2025 7:34 PM EDT [facility] Chol/HDL Ratio 3.5 0.0 - 4.4 LAB CHEMISTRY METHOD 03/07/2025 7:34 PM T [facility] Blood Venous blood specimen / Unknown Venipuncture / Unknown 03/07/2025 4:08 PM EDT 03/07/2025 4:08 PM EDT Dung Herrera MD LAB BLOOD ORDERABLES Final Resu lt [facility] [address] [place] [address], * (ABNORMAL) Comprehensive metabolic panel (03/07/2025 4:08 PM EDT) Sodium 139 133 - 145 mmol/L LAB CHEMISTRY METHOD 03/07/2025 7:34 PM EDT [facility] Potassium 4.4 3.5 - 5.5 mmol/L LAB CHEMISTRY METHOD 03/07/2025 7:[address] [facility] Chloride 104 96 - 110 mmol/L LAB CHEMISTRY METHOD 03/07/2025 7:[address] [facility] CO2 29 21 - 32 mmol/L LAB CHEMISTRY METHOD 03/07/2025 7:[address] [facility] Anion Gap 6 3 - 11 LAB CHEMISTRY METHOD 03/07/2025 7:[address] [facility] Glucose 117(H) 70 - 100 mg/dL LAB CHEMISTRY METHOD 03/07/2025 7:[address] [facility] BUN 13 5 - 25 mg/dL LAB CHEMISTRY METHOD 03/07/2025 7:[address] [facility] Creatinine 0.74 0.50 - 1.10 mg/dL LAB CHEMISTRY METHOD 03/07/2025 7:[facility] eGFR 92 >=60 mL/min/1. 73m2 LAB CHEMISTRY METHOD 03/07/2025 7:[address] [facility] Comment:Calculation based on the Chronic Kidney Disease Epidemiology Collaboration (CKD-EPI) equation refit without adjustment for race. BUN/Creatinine Ratio 17.6 LAB CHEMISTRY METHOD 03/07/2025 7:[address] [facility] Calcium 9.0 8.5 - 10.5 mg/dL LAB CHEMISTRY METHOD 03/07/2025 7:[address] [facility] AST (SGOT) 16 10 - 42 unit/L LAB CHEMISTRY METHOD 03/07/2025 7:34 PM EDT [facility] ALT (SGPT) 22 10 - 60 unit/L LAB CHEMISTRY METHOD 03/07/2025 7:34 PM EDT [facility] Alkaline Phosphatase 89 42 - 121 unit/L LAB CHEMISTRY METHOD 03/07/2025 7:34 PM EDT [facility] Total Protein 7.1 6.0 - 8.0 g/dL LAB CHEMISTRY METHOD 03/07/2025 7:34 PM EDT [facility] Albumin 3.7 3.2 - 5.0 g/dL LAB CHEMISTRY METHOD 03/07/2025 7:34 PM EDT [facility] Total Bilirubin 0.4 0.0 - 1.4 mg/dL LAB CHEMISTRY METHOD 03/07/2025 7:34 PM EDT [facility] Blood Venous blood specimen / Unknown Venipuncture / Unknown 03/07/2025 4:08 PM EDT 03/07/2025 4:08 PM EDT Dung Herrera MD LAB BLOOD ORDERABLES Final Resu lt [facility] [address] [place] [address], * Depression Screening (07/01/2024) Depression Screening abstracted Historical Provider HEALTH MAINTENANCE Final Result * Colonoscopy (07/01/2024) Colonoscopy no interpretation , abstracted Anatomical Region Laterality Modality Other Historical Provider HEALTH MAINTENANCE Final Result * Pap Smear (07/12/2019) Pap smear no interpretation , abstracted Historical [facility] HEALTH MAINTENANCE Final Result * Hepatitis C Screening (12/29/2014) Hepatitis C Screening negative us Historical Provider HEALTH MAINTENANCE Final Result from Last 3 Months or Most Recently Relevant to Health Maintenance Insurance [facility] Care Teams Automated Logistics Specialist Relationship Specialty Start Date End Date Dung Herrera MD [address] [place] [phone] PCP - General Internal Medicine 02/18/22
--- NOTE | 2025-06-27 02:15 | ED_ITS ---
HPI - Animal Bite General Chief Complaint: Animal Bite Stated Complaint: dog bite rt hand Time Seen by Provider: 06/27/25 02:14 Source: patient Mode of arrival: ambulatory Limitations: no limitations History of Present Illness ED Provider: Alok KAPADIA HPI narrative: The patient is a 60-year-old female presenting to the ED for evaluation of a dog bite which occurred last night. Patient reports her daughter's dog bit the base of her right thumb. Patient reports pain immediately upon suffering the bite, however over the past 24 hours patient has now developed swelling, erythema, increasing tenderness and warmth at the base of the right thumb. Patient denies associated fever/chills, nausea, vomiting, or other systemic complaint. The patient denies any impaired range of motion, denies tenderness to palpation of the 1st webspace or flexor surface of the thumb. Related Data Previous Rx's ?Medication ?Instructions ?Recorded doxycycline hyclate 100 mg tablet 100 mg PO BID #14 ta bs 02/21/23 metronidazole 500 mg tablet 500 mg PO TID #21 tabs acetaminophen 500 mg capsule 1,000 mg (2 x 500 mg) PO .q8 PRN 06/27/25 fever or pain #30 caps cefuroxime axetil 500 mg tablet 500 mg PO BID #20 tabs 06/27/25 ibuprofen 600 mg tablet 600 mg PO Q8H PRN fever or p ain 06/27/25 #30 tabs metronidazole 500 mg tablet 500 mg PO TID #30 tabs Allergies Allergy/AdvReac Type Severity Reaction Status Date / Time Penicillins (PENICILLINS) Allergy Unknown BODY WEAK Verified 06/26/25 22:28 Review of Systems 2 Review of Systems: Yes all other systems are reviewed and are negative [facility] Social History Social History Unable to assess alcohol history related to: Unable to respond Smoked in Last 30 Days: No Use of substances other than those prescribed or required for medical reasons: No Advance Directives: No Advance Directives Information Provided: Yes Do you have a plan to hurt others: No Plan Physical Exam ED Vital Signs: Vital Signs - 24 hr 06/26/25 22:27 06/27/25 02:22 06/27/25 03:16 Temperature 97.7 F 98.1 F Pulse Rate 75 71 71 Respiratory Rate 20 16 16 Blood Pressure 145/76 H 110/66 110/66 Pulse Oximetry 99 96 96 Oxygen Delivery Method Room Air Room Air Room Air BMI result Body Mass Index 31.9 CONSTITUTIONAL: The patient appears non-toxic, well nourished and in no acute distress. Vital signs as documented. HEAD: Atraumatic, normocephalic. EYES: EOMs grossly intact, pupils equal, conjunctiva clear, no exudate. ENT: Nares patent, no discharge. Airway patent, no audible stridor, visible mucosa is pink and moist without noted lesions. NECK: trachea is midline, no obvious masses or gross abnormalities. CHEST: Symmetric movement, normal appearance. LUNGS: Non-labored work of breathing. CARDIAC: No evidence of hypoperfusion. ABDOMEN: Nondistended, no obvious injury. : Deferred. EXTREMITIES: There is a puncture wound of the radiodorsal aspect of the base of the right thumb at the proximal aspect of the 1st metacarpal, with swelling and erythema noted over the dorsal surface of the proximal aspect of the 1st and 2nd metacarpals. No fullness of the 1st webspace, tenderness of the flexor sheaths, or impaired range of motion. Distal CSM is intact. No painful range of motion of the wrist. Moves all extremities spontaneously without reported pain. No other obvious injury or deformity noted. NEURO: Alert and oriented x3, CN II-XII appear grossly intact. Cerebellar Functioning grossly intact. Speech clear and appropriate. SKIN: Warm, dry, color appropriate. No rashes or lesions noted Medications Administered Discontinued Medications Generic Name Dose Route Start Last Admin Trade Name Freq PRN Reason Stop Dose Admin Acetaminophen 975 mg 06/27/25 02:21 06/27/25 03:04 Acetaminophen 325 Mg Tablet PO 06/27/25 02:22 975 mg ONCE ONE Administration Cefuroxime Axetil 500 mg 06/27/25 02:27 06/27/25 03:04 Cefuroxime Axetil 500 Mg Tablet PO 06/27/25 02:28 500 mg ONCE ONE Administration Ibuprofen 600 mg 06/27/25 02:21 06/27/25 03:04 Ibuprofen 600 Mg Tablet PO 06/27/25 02:22 600 mg ONCE ONE Administration Metronidazole 500 mg 06/27/25 02:27 06/27/25 03:04 Metronidazole 500 Mg Tablet PO 06/27/25 02:28 500 mg ONCE ONE Administration Medical Decision Making Medical Decision Making MDM Narrative: 2:36 AM 06/27/2025 (Letty KAPADIA): The patient is a 60-year-old female presenting to the ED for evaluation of a dog bite which occurred last night. Patient reports her daughter's dog bit the base of her right thumb. Patient reports pain immediately upon suffering the bite, however over the past 24 hours patient has now developed swelling, erythema, increasing tenderness and warmth at the base of the right thumb. Patient denies associated fever/chills, nausea, vomiting, or other systemic complaint. The patient denies any impaired range of motion, denies tenderness to palpation of the 1st webspace or flexor surface of the thumb. On exam there is a puncture wound of the radiodorsal aspect of the base of the right thumb at the proximal aspect of the 1st metacarpal, with swelling and erythema noted over the dorsal surface of the proximal aspect of the 1st and 2nd metacarpals. No fullness of the 1st webspace, tenderness of the flexor sheaths, or impaired range of motion. Distal CSM is intact. No painful range of motion of the wrist. Patient's x-ray shows no acute fracture, laboratory evaluation shows no leukocytosis, anemia, electrolyte abnormality, or TIMBO, patient is afebrile, normotensive, and without tachycardia. There is no indication for IV antibiotics at this time. The patient will be treated with anti-inflammatories, cefuroxime, and Flagyl, as the patient has a penicillin allergy. Patient will be discharged with instructions to follow up this week with PCP for re-evaluation. Admission/Observation Consideration of admission/observation: Escalation of care including admission/observation considered Lab Data [facility] Lab Attestation statement: I reviewed the patient's lab results. 06/26/25 22:36 06/26/25 22:36 Labs: Lab Results 06/26/25 Range/Units 22:36 WBC 6.3 (4.8-10.8) X10*3/uL RBC 4.14 L (4.20-5.50) X10*6/uL Hgb 12.2 (12.0-16.0) g/dl Hct 36.6 L (37.0-47.0) % MCV 88.4 (80.0-98.0) fL MCH 29.5 (27.0-33.0) pg MCHC 33.3 (31.0-35.0) g/dl RDW 14.5 (11.0-16.0) % Plt Count 198 (160-400) X10*3/uL MPV 8.8 L (9.4-12.3) fL Immature Gran % (Auto) 0.2 (0.0-0.4) % Neut % (Auto) 60.9 (45-73) % Lymph % (Auto) 28.6 (20-40) % Edgar % (Auto) 6.8 (2-11) % Eos % (Auto) 3.0 (0-4) % Baso % (Auto) 0.5 (0-2) % Lymph # (Auto) 1.8 (1.2-4.9) X10*3/uL Edgar # (Auto) 0.4 (0.1-1.2) X10*3/uL Eos # (Auto) 0.2 (0.0-0.4) X10*3/uL Baso # (Auto) 0.0 (0.0-0.2) X10*3/uL Abs Immat Gran (auto) 0.01 (0.00-0.03) X10*3/uL Absolute Neuts (auto) 3.8 (2.0-8.3) x10*3/uL Absolute Nucleated RBC 0.000 (0.0-0.012) X10*3/uL Nucleated RBC % (auto) 0.0 (0.0-0.2) /100WBC Sodium 140 (135-145) mmol/L Potassium 4.3 (3.3-5.1) mmol/L Chloride 106 (96-108) mmol/L Carbon Dioxide 29 (22-29) mmol/L Anion Gap 9 L (12-20) BUN 10 (9-16) mg/dL Creatinine 0.69 (0.5-1.4) mg/dL Estim Creat Clear Calc 92.1 Estimated GFR > 60 Random Glucose 106 (60-115) mg/dL Calcium 9.4 (8.4-10.2) mg/dL Total Bilirubin 0.3 (0.0-1.0) mg/dL AST 23 (5-31) U/L ALT 20 (0-31) U/L Alkaline Phosphatase 94 (39-117) U/L Total Protein 7.1 (6.5-8.0) g/dL Albumin 4.3 (3.5-5.0) g/dL Radiology Impression Discussion of test interpretation with radiology: I have reviewed the radiologist's reading. External Record Review External record reviewed: Outpatient record Prescription Management I considered prescription management with: Pain Medication and Antibiotic Discharge Plan Discharge Clinical Impression: Dog bite Qualifiers: Encounter type: initial encounter Qualified Code(s): W54.0XXA - Bitten by dog, initial encounter Cellulitis Qualifiers: Site of cellulitis: extremity Site of cellulitis of extremity: upper extremity Laterality: right Qualified Code(s): L03.113 - Cellulitis of right upper limb Patient Disposition: Home, Self-Care Instructions: Animal Bite (ED), Cellulitis (ED) Additional Instructions: Thank you for choosing [facility]'s Emergency Department for your care today. Thankfully your x-ray today shows no evidence of a broken bone as a result of your dog bite. Your exam shows no findings concerning for a deep space infection requiring surgical debridement or IV antibiotics, at this time there is no indication for admission to the hospital or continued ED observation, and it is safe to discharge you home. Your presentation is consistent with cellulitis. Please take cefuroxime and Flagyl as prescribed until finished. You may take alternating (staggered) doses of ibuprofen 600mg and Tylenol 1000mg every 4 hours as needed for any additional pain. Please stay well hydrated and get plenty of rest. Please rest the injured area, and apply ice for 20 minutes every hour to reduce swelling. Please follow up with your primary care physician this week for re-evaluation, additional management of your symptoms, and continued preventative care. If you do not have a primary care physician, please call the [facility] at [phone] to establish a new primary care physician. While waiting to establish your new primary care physician, you can call our Walk[facility]in [facility] at [phone] for non-emergency needs. Please return to the emergency department if you develop a severe or sudden change in your symptoms, a fever over 100.4 that does not improve with Tylenol or Ibuprofen, recurrent vomiting, additional swelling growing greater than 1 cm outside the marked area, or any other new or worsening symptoms or concerns. Prescriptions: New metronidazole 500 mg tablet 500 mg PO TID Qty: 30 0RF cefuroxime axetil 500 mg tablet 500 mg PO BID Qty: 20 0RF ibuprofen 600 mg tablet 600 mg PO Q8H PRN (Reason: fever or pain) Qty: 30 0RF acetaminophen 500 mg capsule 1,000 mg PO .q8 PRN (Reason: fever or pain) Qty: 30 0RF No Action doxycycline hyclate 100 mg tablet 100 mg PO BID Qty: 14 0RF metronidazole 500 mg tablet 500 mg PO TID Qty: 21 0RF Referrals: Dung Herrera MD [Primary Care Provider, Internal Medicine] - 5 days Clinical Impression: Dog bite; Cellulitis Interventions: ED Discharge Assessment Last Done: 06/27/25 03:16 Discharge Date/Time: 06/27/25 03:16 Print Language: Tamazight
[2025-06-27 02:22] VITALS: BP 110/66; PULSE 71; RESP 16; O2SAT 96
--- NOTE | 2025-06-27 02:26 | PC.NURSE ---
Patient is alert and oriented x4. C/o right hand pain with swelling from dog bite, daughters dog. Pt stating its a 9/10 pain. Pain in thumb area, daughter repots dog is UTD on their vaccines. Awaiting hand XR.
[2025-06-27 03:16] VITALS: BP 110/66; PULSE 71; RESP 16; TEMP 36.7; O2SAT 96
== END 2025-06-27 03:16 | disposition home or self-care (01) ==
PROVIDERS: Emergency Provider Emergency Medicine; PCP Internal Medicine
DX: L03.113 Cellulitis of right upper limb (principal); S61.051A Open bite of right thumb without damage to nail, initial encounter; W54.0XXA Bitten by dog, initial encounter; Y93.89 Activity, other specified; Y92.9 Unspecified place or not applicable; Y99.9 Unspecified external cause status
CPT/HCPCS: 36415; 73130; 80053; 85025; 99283; 99284

== ENCOUNTER → 2025-06-27 02:20 | Outpatient (BNV) | payer OTHER, SELFPAY | PROVIDERS: Emergency Provider Emergency Medicine; PCP Internal Medicine; Visit Provider Radiology Diagnostic Radiology | DX: M79.641 Pain in right hand (principal); W54.0XXA Bitten by dog, initial encounter | CPT/HCPCS: 73130 ==